=== PATIENT | female | born 2000 | race Caucasian/White ===

== ENCOUNTER 2025-02-16 11:26 | Outpatient (REF) | payer OTHER, SELFPAY ==
--- NOTE | ~2025-02-16 | US_ITS ---
EXAMINATION: US ABDOMEN COMPLETE CLINICAL INFORMATION: Epigastric pain.. COMPARISON: None available. TECHNIQUE: Real-time imaging of the abdominal viscera using grayscale and color Doppler technique. FINDINGS: PANCREAS: No peripancreatic fluid collection. ABDOMINAL AORTA: The proximal, mid, and distal segments are normal in caliber. INFERIOR VENA CAVA: Visualized portions are normal. LIVER: Liver measures 13 cm. Coarse echotexture. No nodular surface. No gross solid or cystic lesion detected by the operations management professionals. Main portal vein is patent with normal hepatopedal flow direction. No intrahepatic biliary ductal dilatation. GALLBLADDER: Multiple layering intraluminal hyperechoic lesions with posterior shadowing. Normal gallbladder wall thickening or pericholecystic fluid collection. COMMON BILE DUCT: 2 mm. RIGHT KIDNEY: 10 cm. Normal echotexture. Normal renal cortical thickness. No hydronephrosis. No gross solid or cystic lesion. Normal flow on color Doppler interrogation of the renal hilum. LEFT KIDNEY: 10 cm. Normal echotexture. Normal renal cortical thickness. No hydronephrosis. No solid or cystic lesion. Normal flow on color Doppler interrogation of the renal hilum. SPLEEN: 9 cm. No focal lesion.. FREE FLUID: None. US/US abdomen complete IMPRESSION: Cholelithiasis. Electronically signed by: Nixon Aggarwal MD 02/16/2025 02:27 PM EDT
--- OUTSIDE RECORDS SUMMARY | 2025-02-16 13:57 | XMS_ITS | Clinical Summary ---
Author Organization [facility] [address] [place] [address] [place] [phone] Phone Care Team Providers Care Parking Lot Attendant And Cashier Name Role Phone LakeshiaTayler hayes SHRUTI Primary Care Provider Allergies Active Allergy Reactions Criticality Noted Date Comments Penicillins 10/21/2024 Medications nortriptyline (PAMELOR) 10 mg capsule Take 1 capsule (10 mg total) by mouth at bedtime. 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 In her case, it sounds like she may have had some atrophy from intermediate OCP use which may be resolving with her temporary use of Estrace cream. Her skin no longer seems to be an issue, but now on exam she has findings which are most c/w high tone pelvic floor dysfunction, possibly as a result of previously more superficial causes of her pain. Since she has had improvement with dyspareunia, I suspect she will continue to do so with management of her muscle tone in pelvic floor PT. I offered a topical lidocaine if she would like to try it before session, but she prefers to wait and see. She was counseled that she may require topical medication for nerve type pain if she does not improve with PT. She will return if this is the case. Endometriosis 10/24/2021 Overview (10/24/2024): Diagnosed by surgery by prior card tender Surgical History Surgery Date Site/Laterality Comments PELVIC LAPAROSCOPY Medical History Medical History Date Comments Endometriosis Family History Medical History Relation Name Comments Skin cancer Paternal Grandfather Breast cancer Neg Hx Ovarian cancer Neg Hx Pancreatic cancer Neg Hx Prostate cancer Neg Hx Uterine cancer Neg Hx Relation Name Status Comments Paternal Grandfather Social History Tobacco Use Types Packs/Day Years Used Date Smoking Tobacco: Never Smokeless Tobacco: Never Tobacco Cessation:Counseling Given: Not Answered Alcohol Use Standard Drinks/Week Comments Yes 0 (1 standard drink = 0.6 oz pur e alcohol) social Comments No Sex and Gender Information Value Date Recorded Sex Assigned at Not on file Legal Sex Female 11:38 AM EDT Gender Identity Not on file Sexual Orientation Not on file Obstetrics History Para Term AB IAB SAB Ectopic Multiple Livin g Live Births 0 0 0 0 0 0 0 0 0 0 0 Last Filed Vital Signs Vital Sign Reading Time Taken Comments Blood Pressure 120/80 10/21/2024 4:14 PM EST Pulse 82 10/21/2024 4:14 PM EST Temperature - - Respiratory Rate 16 10/21/2024 4:14 PM EST Oxygen Saturation - - Inhaled Oxygen Concentration - - Weight 55.1 kg (121 lb 6.4 oz) 10/21/2024 4:14 P M EST Height 157.5 cm (5' 2 ) 10/21/2024 4:14 PM EST Body Mass Index 22.2 10/21/2024 4:14 PM EST Plan of Treatment Health Maintenance Due Date Last Done Comments Gonorrhea/Chlamydia Screening 2000 HPV Vaccines (1 - 3-dose series) 2015 DTaP,Tdap,and Td Vaccines (1 - Tdap) 2019 Hepatitis B Vaccines (1 of 3 - 19+ 3-dose series) 2019 Cervical Cancer Screening: P ap Smear 2021 COVID-19 Vaccine (2 - 2023-2 5 season) 2024 10/19/2023 Influenza Vaccine (#1) 2024 10/19/2023 Depression Screening 08/22/2024 HIV Screening 08/22/2024 Hepatitis C Screening 08/22/2024 Social Influencers of Health Screening 08/22/2024 HIB Vaccines Aged Out No longer eligi ble based on patient's age to complete this topic Hepatitis A Vaccines Aged Out No long er eligible based on patient's age to complete this topic IPV Vaccines Aged Out No longer eligi ble based on patient's age to complete this topic MMR Vaccines Aged Out No longer eligi ble based on patient's age to complete this topic Meningococcal ACWY Vaccine Aged Out N o longer eligible based on patient's age to complete this topic Meningococcal B Vaccine Aged Out No l onger eligible based on patient's age to complete this topic Pneumococcal Vaccine: Pediat rics (0 to 5 Years) and At-Risk Patients (6 to 64 Years) Aged Out No longer eligi ble based on patient's age to complete this topic RSV Immunization Patients Un luz 20 months Aged Out No longer eligible b ased on patient's age to complete this topic Varicella Vaccines Aged Out No longer eligible based on patient's age to complete this topic Insurance [employer], [facility] Care Teams Parking Lot Attendant And Cashier Relationship Specialty Start Date End Date Tayler Rodriguez NP [address] [place] [id number] PCP - General 06/27/24
--- OUTSIDE RECORDS SUMMARY | 2025-02-16 13:57 | XMS_ITS | Continuity of Care Document ---
Author Organization [facility] Address [address] [facility] [address], [address] [place] [address] Phone Care Team Providers Care Pacs Specialist Name Role Phone Sposito TOOL AND DIE MACHINIST, Celena Unavailable Unavailable Allergies, Adverse Reactions, Alerts Substance Reaction Status Criticality No Known Allergies Active No Inform ation Medications Medication Instructions Dosage Effective Dates (start - stop) Status Comments 11/28 TABS REJI 28'S 11/28 TAKE 1 TABLET DAILY - Active 11/28 TABLETS 28S TAKE 1 TABLET BY MOUTH EVERY DAY - Active 11/28 (28) 1 mg-20 mcg (21)/75 mg (7) tablet take 1 tablet by oral route every day 1.00 tablet - Active Proair Digihaler 90 mcg/actuation aerosol powder breath act, sensor inhale 2 puff by inhalation route every 4 - 6 hours as needed - Active Procedures Procedure Date CYTOPATH, C/V, THIN LAYER PREV VISIT, EST, AGE 18-39 POST OP S/P MAJOR SURG POST OP S/P MAJOR SURG Established Patient Office Visit, Edilberto aguilar OFFICE/OUTPATIENT VISIT, EST OFFICE/OUTPATIENT VISIT, EST URINALYSIS NONAUTO W/O SCOPE BARREL RAISER HELPER 2020 OFFICE/OUTPATIENT VISIT, NEW Advance Directives Directive Yes / No Effective Date File Name No Information Encounters Encounter Description Practice Location Reason(s) For Visit Diagnoses Date Provider [facility], [address], [facility] [address] [place], [id number], [place] tel:[phone] [address] [place] No Information 3 Ayan [place]. [address] [place] [address], [address], , [place]. tel:[phone] [facility], [address], [facility] [address], [id number], [place] tel:[phone] [address] [place] No Information 3 Ayan [place]. [address] [facility], [address], , [place]. tel:[phone] PREV VISIT, EST, AGE 18-39 [facility], [address], [facility] [place], [id number], [place] tel:[phone] [address] [place] Annual Exam (chief complaint) Encounter for gynecological examination (general) (routine) without abnormal findingsOral contraceptive pill surveillance 2 Ayan [place]. [address], [place] [address], [place], [place], [id number], [place]. tel:[phone] [facility], [address], [facility] [address], [id number], [place] tel:[phone] [address] [place] No Information 2 Vicky Doll. [address] [facility], [facility] [address], [place], [place], [id number], [place]. tel:[phone] [facility], [address], [facility] [address], [id number], [place] tel:[phone] [address] [place] *post-op (chief complaint) Chronic pelvic pain in femaleHigh-tone pelvic floor dysfunctionEndometriosis 2 Regan Haney. [address], [id number], [place]. tel:[phone] [facility], [address], [address] [place], [id number], [place] tel:[phone] [address] [place] *post-op (chief complaint) Postop check 1 Tyjohn Haney. [address] [place] [address], [id number], [place]. tel:[phone] Established Patient Office Visit, [facility] [address], [address], [place], [id number], [place] tel:[phone] [address] [place] Preop visit (chief complaint) Endometriosis 1 Tyjohn Montaño [address] [place] [address], [id number], [place]. tel:[phone] [facility], [facility] [address], [facility] [address], [id number], [place] tel:[phone] [address] [place] No Information 1 Tyjohn Montaño [address] [place] [address], [id number], [place]. tel:[phone] OFFICE/OUTPATI ENT VISIT, [facility], [address], [facility] [address], [id number], [place] tel:[phone] [address] [place] *pelvic pain (chief complaint) Chronic pelvic pain in female 1 Tyjohn Montaño [address] [place] [address], [id number], [place]. tel:[phone] OFFICE/OUTPATI ENT VISIT, [facility], [facility] [address], [facility] [address], [id number], [place] tel:[phone] [address] [place] Follow Up of Pelvic pain (chief complaint) EndometriosisChronic pelvic pain in female 1 Tyjohn Montaño [address], [id number], [place]. tel:[phone] OFFICE/OUTPATI ENT VISIT, [facility], [address] [facility] [address] [address], [place], [id number], [place] tel:[phone] [address] [place] *pelvic pain (chief complaint) Urinary tract infection, site not specifiedChronic pelvic pain in femaleOther chronic painEndometriosis 1 Regan Haney. [address], [id number], [place]. tel:[phone] Family History Family Member Type Diagnosis Age At Onset Paternal grandmother Problem Diabetes mellitus Payers Payer name Insurance type Covered green party ID Taylor concepcion(karsten LU [id number] Social History Type Description Quantity Date Captured Comments Sex Female Smoking Status No Information Sexual Orientation Straight or heterosexual Chief Complaint And Reason For Visit No Information Plan Of Treatment Date Type Action Status Future Order: Lab Order UA Dipst ick (BARREL RAISER HELPER) ([id number]), Collected on: New History Of Present Illness Encounter Date Complaint History Of Prese nt Illness Annual Exam The patient stat es she uses oral contraceptive for control. Last LMP was 05/18/2022. Her menses is regular with light flow with a frequency of monthly. Negative for dysmenorrhea and menorrhagia. She reports getting calcium from dietary sources. She is getting adequate sunlight exposure. She does not take multivitamins. She does not take Folic acid.The patient states her exercise level is vigorous and frequency is 5-6 times/week. She does drink alcohol. *post-op The status of th e patient has not changed. The patient reports no pain. The patient is not using pain medication. The patient reports no complications with the wound. The patient's activity level is back to pre-operative level. There are no indwelling devices. Pertinent negatives include abdominal pain, anorexia, calf tenderness, chest pain, chills, constipation, cough, diarrhea, dysphagia, dyspnea, fever, hematoma, hoarseness, limping, nausea, pleuritic pain, referred pain, swelling, urinary difficulty, vomiting and weight loss. Additional information: Patient has stated she is experiencing lower abdominal pain. She states it is a dull pain that is triggered by intercourse. *post-op The status of th e patient has improved. The patient reports no pain. The patient is using medication and having good response. The patient reports no complications with the wound. The patient's activity level is back to pre-operative level. There are no indwelling devices. Pertinent negatives include abdominal pain, anorexia, calf tenderness, chest pain, chills, constipation, cough, diarrhea, dysphagia, dyspnea, fever, hematoma, hoarseness, limping, nausea, pleuritic pain, referred pain, urinary difficulty, vomiting and weight loss. Additional information: Abdominal + thigh rash. Preop visit No changes in HP I since last visit. All questions and concerns addressed. Patient adamant about definitive surgical treatment by Dx LSX possible EOE. Consent completed in detail. *pelvic pain Last menstrual p eriod was 06/20/2021. Relevant factors include mid-cycle pain. Patient denies amenorrhea, antibiotic use, contraceptive use, frequent urination, hormone replacement therapy use, pelvic floor prolapse or possible . The patient has a history of dyspareunia. The patient does not have a history of endometriosis, ovarian cyst, premenstrual syndrome or premenstrual dysphoric disorder, sexually transmitted infection or tubal ligation. The patient's symptoms are aggravated by exertion, intercourse and menses. The patient's symptoms are not aggravated by defecation, lying down, meals, sitting or walking. Follow Up of Pelvic pain Additio nal information: The patient reports that she finished her CHC pack and has been feeling better since. She reports that the pain significantly improved after she had a menstrual cycle. All questions and concerns addressed. *pelvic pain The patient's sy mptoms have been moderate, are unchanged and are constant. Presently,the patient is experiencing pain described as dull, located in the right ovary and radiating to the pelvis. Last menstrual period was 02/10/2021. Relevant factors include antibiotic use, contraceptive use and mid-cycle pain. Patient denies amenorrhea, frequent urination, hormone replacement therapy use, pelvic floor prolapse or possible . The patient does not have a history of dyspareunia, endometriosis, ovarian cyst, premenstrual syndrome or premenstrual dysphoric disorder, sexually transmitted infection or tubal ligation. The patient's symptoms are not aggravated by defecation, exertion, intercourse, lying down, meals, menses, sitting or walking. The patient's symptoms are relieved by over the counter medication. The patient's symptoms are not relieved by heat, position change or prescription medication.The patient denies any abdominal mass, bloating, chills, constipation, decreased appetite, diarrhea, dizziness, dysuria, fever, hematuria, melena, menstrual cramping, nausea, syncope, urinary frequency or vomiting. Additional information: Reports 3 Cx proven UTI since October. All GBS. the initial UTI was incidentally found. She has no UTI Sx. Instructions Date Instruction Additional Infor kirsten No Information Assessments Type Assessment Date No Information
== END 2025-02-16 11:27 | disposition home or self-care (01) ==
LOC: HO.UMASIMG 11:26
PROVIDERS: Visit Provider Registered Nurse
DX: R10.13 Epigastric pain (principal)
CPT/HCPCS: 76700

== ENCOUNTER → 2025-02-16 13:30 | Outpatient (BNV) | payer OTHER, SELFPAY | PROVIDERS: Visit Provider Radiology Diagnostic Radiology | DX: R10.13 Epigastric pain (principal) | CPT/HCPCS: 76700 ==